=== PATIENT | female | born 1970 | race Caucasian/White ===

== ENCOUNTER 2019-01-28 11:15 | Day surgery (SDC) | payer SELFPAY ==
[2019-01-27 14:13] VITALS: BMI 32.7
[2019-01-28] MEDS ORDERED: HEPARIN NA (PORCINE) 5,000 UNITS/ML 1ML VIAL ONE (12:04)
[2019-01-28] MEDS ORDERED: ceFAZolin SODIUM 1 GM VIAL ONE ×2 (12:04→12:44)
[2019-01-28] MEDS ORDERED: LIDOCAINE HCL 1%, 10 MG/ML (20ML VIAL) ONE (12:34)
[2019-01-28] MEDS ORDERED: EPINEPHrine/PF 1 MG/1 ML (1:1,000) AMPULE ONE (12:34)
[2019-01-28] MEDS ORDERED: MIDAZOLAM HCL 2 MG/2 ML SINGLE DOSE VIAL ONE (12:40)
[2019-01-28] MEDS ORDERED: fentaNYL CITRATE 250 MCG/5 ML VIAL ONE (12:40)
[2019-01-28] MEDS ORDERED: ROCURONIUM BROMIDE 50 MG/5 ML VIAL ONE ×2 (12:40)
[2019-01-28] MEDS ORDERED: LIDOCAINE HCL/PF 2% SDV 5ML VIAL ONE (12:44)
[2019-01-28] MEDS ORDERED: DEXAMETHASONE SOD PHOSPHATE 4 MG/1 ML VIAL ONE ×2 (12:44→12:46)
[2019-01-28] MEDS ORDERED: ceFAZolin SODIUM 1 GM VIAL IVPB ONE (13:55)
[2019-01-28] MEDS ORDERED: ONDANSETRON 4 MG/2 ML VIAL IVPUSH PRN (15:04)
[2019-01-28] MEDS ORDERED: oxyCODONE HCL 5 MG TABLET PO PRN ×3 (15:04→18:12)
[2019-01-28] MEDS ORDERED: LACTATED RINGERS SOLUTION 1,000 ML IV SCH (15:15)
[2019-01-28] MEDS ORDERED: BACITRACIN 15 GM TUBE TOPICAL OINTMENT ONE (16:24)
[2019-01-28] MEDS ORDERED: ONDANSETRON 4 MG/2 ML VIAL IVPB PRN (18:12)
[2019-01-28] MEDS ORDERED: morphine SULFATE 4 MG/ML VIAL IVPUSH PRN (18:12)
--- NOTE | 2019-01-28 18:17 | OP ---
Operative Note - Note: Operative Date: 01/28/19 Pre-Operative Diagnosis: cosmetic Operation: liposuction to back and lateral thighs with free fat grafting to the bilateral buttocks Post-Operative Diagnosis: Same as Pre-op Surgeon: Yao Zabala Anesthesia: General
[2019-01-28] MEDS: LACTATED RINGERS SOLUTION 1,000 ML IV SCH (20:05)
--- NOTE | 2019-01-28 21:18 | OP ---
DATE OF OPERATION: 01/28/2019 TITLE OF PROCEDURE: Liposuction to the flanks, back, and lateral thighs with free fat grafting to bilateral buttocks. ATTENDING SURGEON: Yao Ochoa MD ASSISTANTS: None. ANESTHESIA: General endotracheal. PREOPERATIVE DIAGNOSES: Cosmetic gluteal deformity and lipodystrophy. POSTOPERATIVE DIAGNOSES: Cosmetic gluteal deformity and lipodystrophy. The patient is seen in the holding area. She has been thoroughly counseled on all risks, benefits, and alternatives to the operation. She understands this as well as its limitations. She agrees to proceed. She is awake and aware of all markings and their references. The patient is given 5000 units of subcutaneous heparin preoperatively. ASHLEIGH hose and sequential compression stockings are applied in the holding area. She is brought to the operating room. She is given general anesthesia and intubated while supine on her stretcher. At this point, a Whyte catheter is placed which is removed at the end of the procedure. She is then positioned in a prone position using a George frame with all appropriate positioning aids and pressure points carefully padded. The position is checked by surgical and anesthesia teams and all members of the nursing staff. All appropriate positioning elements are checked, and everyone is satisfied. The patient is given a gram of Ancef. She is prepped and draped in standard surgical fashion. At this point, a timeout is called. Patient, procedure, sites, and sides are verified. Several stab wound incisions are made for infiltration of the wetting solution. Wetting solution is as follows: The first 2 L of wetting solution comprised of 1 L of lactated Ringer's with 1 ampule of 1:1000 epinephrine and 20 mL of 1% lidocaine plain. The second 2.5 L is 1 L of lactated Ringer's with 1 ampule of 1:1000 epinephrine with no lidocaine. Wetting solution is infiltrated using standard infiltration pumping system, and the full 20 minutes is awaited for hemostatic effect. At this point, after waiting the adequate 20 minutes, the SAFE technique of liposuction is performed using pre- and post-tunneling with non-suction basket-tip cannulas. Suction is then performed using a MicroAire Power-Assisted system with a combination of 4- and 3-mm cannulas. The total liposuction aspirate is as follows: 1500 mL of lipoaspirate from the lower back and flank, 500 mL from the left upper back, and 500 mL from the right upper back and an additional 500 mL miscellaneous from the remainder of the back including bilateral lateral thighs for a total liposuction aspirate for the case of 3 L. The MicroAire fat harvesting system is used. The fat is processed with the MicroAire System and washed appropriately with sterile saline. It is gravity filtered and transferred into 60-mL syringes, followed by 20-mL syringes. After being allowed to gravity filter, it is prepared for injection. A Reed injection technique with micro-droplet injection is performed in the marked areas on the patient's left buttock which is the smaller preoperatively. It is injected with a total of 780 mL of fat. The right is injected with a total of 620 mL of fat. The endpoint is the appropriate desired contour as well as the use of all the fat that was available and good symmetry. The incisions are closed with a series of interrupted 5-0 nylon suture. Dressings are applied with eye patches and Tegaderms. A compressive garment is then applied. Patient is transferred to a supine position. Whyte catheter is removed. All personnel are there for position change. The drapes had been removed. Patient was awoken from anesthesia, transferred to Recovery without complication, where she is shortly thereafter returned to a prone position once she has recovered. YAO OCHOA M.D. [id number]
[2019-01-28] MEDS: CEFAZOLIN 1 GM/D5W 1 GM/50 ML BAG IVPB SCH (21:50)
[2019-01-29] MEDS: CEFAZOLIN 1 GM/D5W 1 GM/50 ML BAG IVPB SCH ×2 (03:12→08:09)
[2019-01-29] MEDS: LACTATED RINGERS SOLUTION 1,000 ML IV SCH (03:38)
[2019-01-29] MEDS ORDERED: HEPARIN NA (PORCINE) 5,000 UNITS/ML 1ML VIAL SQ SCH (07:00)
--- NOTE | 2019-01-29 07:23 | PN ---
Progress Note (short form) - Note Progress Note: POD 1 VSS AF All tissues viable with no infections or collections Ambulating, received sq heparin, jimenez PO OK for discharge, instructions given
[2019-01-29 08:22] VITALS: TEMP 98.5
[2019-01-29 09:33] VITALS: BP 120/80; PULSE 76
== END 2019-01-29 10:12 | disposition home or self-care (01) ==
LOC: JASUSAT 11:15 → J6S 21:00 → JASUSAT 01-29 10:12
PROVIDERS: ATTEND Plastic Surgery
CPT/HCPCS: 84703; 94760; J1644